=== PATIENT | male | born 1940 | race Caucasian/White ===

== ENCOUNTER → 2017-07-31 | Day surgery (SDC) | payer MEDICARE, OTHER ==
[~2017-07-31] MED LIST: ACYCLOVIR200 MG/5 M PO; ALLEGRA ALLERG180 MG PO; AMBIEN10 MG PO; ATIVAN1 MG PO; BUDESONIDE EC3 MG PO; CENTRUM COMPLE1 EACH PO; CYCLOBENZAPRINE5 MG PO; FENTANYL CITRATE/PF 100MCG/2 ML INJ ONE; FLUOXETINE HCL20 MG PO; FOLIC ACID1 MG PO; IMODIUM2 MG PO; LIBRAX CAPSULE1 EACH PO; MIDAZOLAM HCL 2 MG/2 ML VIAL ONE; NORCO 10-325 T1 EACH PO; OR PHACO EYE KIT ONE; PANTOPRAZOLE SO40 MG PO; PREOP PHACO EYE KIT ONE
--- OUTSIDE RECORDS SUMMARY | 2017-07-31 13:14 | XMS REPORT | Clinical Summary ---
Author Author [facility] Address Unknown Phone Unavailable Care Team Providers Care Policy Advisor Name Role Phone Alexis Villar DO PCP Allergies Active Allergy Reactions Severity Noted Date Comments Azathioprine 07/28/2016 Center [place]wich Swelling 07/28/2016 Patient stated it was discovered by allergy screening Wheat 07/28/2016 Patient stated it was discovered by allergy screening. Pt states no reaction when he consumes wheat. Current Medications Prescription Sig. Disp. Refills Start End Date Status Date FLUoxetine (PROzac) 20 MG Take 40 mg by mouth Active capsule daily. fexofenadine (ABDIEL) Take 180 mg by mouth Active 180 MG tablet daily. pantoprazole (PROTONIX) Take 40 mg by mouth Active 40 MG EC tablet daily. HYDROcodone-acetaminophen Take 1 tablet by mouth Active (NORCO) 10-325 mg per every 4 (four) hours. tablet zolpidem (AMBIEN) 10 mg Take 10 mg by mouth Active tablet nightly. cyclobenzaprine Take 10 mg by mouth Active (FLEXERIL) 10 mg tablet nightly. acyclovir (ZOVIRAX) 200 Take 200 mg by mouth Active MG capsule daily. multivitamin with Take 1 tablet by mouth Active minerals tablet daily. ferrous sulfate 325 (65 Take 65 mg by mouth daily Active FE) MG tablet with breakfast. chlordiazepoxide-clidiniu Take 1 capsule by mouth Active m (LIBRAX) 5-2.5 mg per daily as needed for capsule cramping or indigestion. Take 1 to 2 capsule budesonide EC (ENTOCORT Take 6 mg by mouth every Active EC) 3 mg 24 hr capsule morning. folic acid (FOLVITE) 400 Take 400 mcg by mouth Active MCG tablet daily. LORAZepam (ATIVAN) 1 MG Take 1 mg by mouth 2 Active tablet (two) times a day as needed for anxiety. benzonatate (TESSALON) Take 1 capsule (100 mg 21 capsule 0 07/30/19 08/06/19 100 MG capsule total) by mouth 3 (three) 17 17 times a day as needed for cough for up to 7 days. azithromycin (ZITHROMAX Take 2 tablets the first 6 tablet 0 07/30/19 08/03/19 Z-VINICIUS) 250 MG tablet day, then 1 tablet daily 17 17 for 4 days. albuterol (PROAIR Inhale 2 puffs every 6 18 g 11 07/30/19 08/29/19 HFA,PROVENTIL (six) hours as needed for 17 17 HFA,VENTOLIN HFA) 90 wheezing for up to 30 mcg/actuation inhaler days. Active Problems Problem Noted Date Acute URI 07/28/2016 Family History Medical History Relation Name Comments Cancer Father Cerebral aneurysm Mother Relation Name Status Comments Father Mother cerebral hemorrhage Social History Tobacco Use Types Packs/Day Years Used Date Never Smoker Alcohol Use Drinks/Week oz/Week Comments No drank in "my youth" Sex Assigned at Date Recorded Not on file Last Filed Vital Signs Not on file Plan of Treatment Health Maintenance Due Date Last Done Comments COLONOSCOPY 1992 ZOSTER VACCINE 2002 PNEUMOCOCCAL 2007 POLYSACCHARIDE VACCINE AGE 65 AND OVER PNEUMOCOCCAL-13 2007 INFLUENZA VACCINE 11/28/2016 Results * ECG ED Preliminary Interpretation - NOT AN ORDER (07/30/2016 8:11 PM) Nikunj Camarena DO 07/30/20168:11 PM ECG ED Preliminary Interpretation - Not an Order Performed by: BRITTANY CAMARENA Authorized by: BRITTANY CAMARENA ECG reviewed by ED Physician in the absence of a 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
== END | disposition home or self-care (01) ==
LOC: OR 13:12
PROVIDERS: ATTEND Ophthalmology
DX: H25.11 Age-related nuclear cataract, right eye (principal); K58.9 Irritable bowel syndrome, unspecified; K21.9 Gastro-esophageal reflux disease without esophagitis; F41.9 Anxiety disorder, unspecified
CPT/HCPCS: 66984; J2250; V2632